=== PATIENT | male | born 1950 | race Hispanic/Latino ===

== ENCOUNTER 2019-07-18 08:03 | Emergency (ER) | payer MEDICARE ==
[~2019-07-18 08:03] MED LIST: ALLO100T PO; AMLO10TA7 PO; CINA30 PO; CIPR-245 PO; FURO40TA5 PO; MAG OXIDE PO; METO-408 PO; METR500T PO; MYCO250C36 PO; TACR1CAP10 PO; TACR1CAP18 PO
[2019-07-18 09:10] LABS: BASOPHILS % (AUTO) 0.4 % (0.0-5.0); EOSINOPHILS % (AUTO) 0.1 % (0.0-8.0); HEMATOCRIT 39.1 % (42-54); MEAN CORPUSCULAR HEMOGLOBIN 29.1 pg (27.0-33.0); MEAN CORPUSCULAR HGB CONC 33.2 g/dL (32.0-36.0); MEAN CORPUSCULAR VOLUME 87.7 fL (79-99); MONOCYTES % (AUTO) 10.4 % (3.0-13.0); NEUTROPHILS % (AUTO) 80.5 % (40.0-77.0); PLATELET COUNT (AUTO) 206 K/uL (130-400); RED BLOOD CELL COUNT(AUTO) 4.46 MIL/uL (4.50-6.20); WHITE BLOOD COUNT (AUTO) 10.3 K/uL (4.8-10.8)
[2019-07-18 09:25] LABS: CREATININE 2.1 mg/dL (0.5-1.5); POTASSIUM 3.5 mmol/L (3.5-5.1)
[2019-07-18 09:29] LABS: BILIRUBIN,TOTAL 2.3 mg/dL (0.2-1.0); TOTAL PROTEIN, SERUM 7.2 g/dL (6.0-8.3)
[2019-07-18 09:51] LABS: B-TYPE NATRIURETIC PEPTIDE 94 pg/mL (0-100)
[2019-07-18] MEDS ORDERED: DEXAMETHASONE SOD PHOSPHATE 4 MG/ML 1ML VIAL ONE (11:19)
== END 2019-07-18 12:14 | disposition home or self-care (01) ==
LOC: EDH 08:03
DX: M25.461 Effusion, right knee (principal); R60.0 Localized edema; N18.9 Chronic kidney disease, unspecified; R05 Cough; E78.5 Hyperlipidemia, unspecified; I25.10 Atherosclerotic heart disease of native coronary artery without angina pectoris; Z94.0 Kidney transplant status
CPT/HCPCS: 36415; 71046; 73562; 80053; 82550; 83880; 84484; 85025; 87804 ×2; 93005; 93970; 96372; 99285; J1100

== ENCOUNTER 2022-05-23 09:04 | Emergency (ER) | payer MEDICARE ==
[~2022-05-23] VITALS: Ht 177.8 cm; Wt 104.3 kg
[~2022-05-23 09:04] MED LIST changes: +AMLO-258 PO; -AMLO10TA7 PO; -CIPR-245 PO; +CIPR500T10 PO
[2022-05-23] MEDS ORDERED: LIDOCAINE HCL 1% 20 ML VIAL INJ STA (09:59)
[2022-05-23] MEDS ORDERED: KETOROLAC 30MG VIAL (30MG/ML) IM ONE (11:00)
[2022-05-23 11:58] VITALS: BP 165/94
[2022-05-23] MEDS ORDERED: ACET-66 PO (12:29)
== END 2022-05-23 12:38 | disposition home or self-care (01) ==
LOC: EDH 09:04
DX: M70.31 Other bursitis of elbow, right elbow (principal); I10 Essential (primary) hypertension; Z95.1 Presence of aortocoronary bypass graft; Z94.0 Kidney transplant status; Z98.890 Other specified postprocedural states; Z79.899 Other long term (current) drug therapy; Y93.89 Activity, other specified
CPT/HCPCS: 99284; 87071; 87205; 89060; 73080; 96372; 20605; J1885

== ENCOUNTER 2022-11-01 09:33 | Emergency (ER) | payer MEDICARE ==
[~2022-11-01] VITALS: Ht 180.3 cm; Wt 102.1 kg
[~2022-11-01 09:33] MED LIST changes: +ACET-66 PO
[2022-11-01 09:34] VITALS: BP 204/92
[2022-11-01 10:07] LABS: BASOPHILS % (AUTO) 0.5 % (0.0-5.0); EOSINOPHILS % (AUTO) 0.1 % (0.0-8.0); HEMATOCRIT 43.3 % (42-54); LYMPHOCYTES % (AUTO) 14.7 % (21.0-51.0); MEAN CORPUSCULAR HEMOGLOBIN 29.6 pg (27.0-33.0); MEAN CORPUSCULAR HGB CONC 32.6 g/dL (32.0-36.0); MONOCYTES % (AUTO) 7.8 % (3.0-13.0); NEUTROPHILS % (AUTO) 76.4 % (40.0-77.0); PLATELET COUNT (AUTO) 136 K/uL (130-400); RED BLOOD CELL COUNT(AUTO) 4.76 MIL/uL (4.50-6.20); RED CELL DISTRIBUTION WIDTH 12.5 % (11.0-15.5); WHITE BLOOD COUNT (AUTO) 8.6 K/uL (4.8-10.8)
[2022-11-01 10:17] LABS: CREATININE 1.2 mg/dL (0.5-1.5); POTASSIUM 4.4 mmol/L (3.5-5.1)
[2022-11-01 10:25] LABS: ALBUMIN 3.6 g/dL (3.5-5.0); TOTAL PROTEIN, SERUM 6.8 g/dL (6.0-8.3)
[2022-11-01 10:31] LABS: INR 0.99 (0.85-1.15); PROTHROMBIN TIME 10.8 SEC (9.6-11.6)
[2022-11-01] MEDS ORDERED: TRAMADOL HCL 50 MG TABLET PO ONE (14:30)
== END 2022-11-01 14:30 | disposition home or self-care (01) ==
LOC: EDH 09:33
DX: S66.911A Strain of unspecified muscle, fascia and tendon at wrist and hand level, right hand, initial encounter (principal); R22.31 Localized swelling, mass and lump, right upper limb; Z79.69 Long term (current) use of other immunomodulators and immunosuppressants; Z95.1 Presence of aortocoronary bypass graft; W18.39XA Other fall on same level, initial encounter; Y93.68 Activity, volleyball (beach) (court); Y92.89 Other specified places as the place of occurrence of the external cause; Y99.8 Other external cause status
CPT/HCPCS: 29125; 36415; 73110; 73130; 80053; 85025; 85610; 93971

== ENCOUNTER 2024-07-08 22:15 | Emergency (ER) | payer MEDICARE ==
[~2024-07-08] VITALS: Ht 177.8 cm; Wt 105.7 kg
--- NOTE | 2024-07-08 22:40 | ERN ---
General Chief Complaint: Mechanical Fall Stated Complaint: FALL, LEFT WRIST DEFORMITY, PAIN LEFT KNEE ANKLE Time Seen by MD: 22:22 History of Present Illness Initial Comments 74-year-old male brought in by EMS from home for a mechanical fall. Patient was mopping, he slipped on wet forearm fell on his left side. He did put out his hand to catch his fall. He was pain to the left wrist, left hip, left knee, and left ankle. There is some swelling to the left wrist, neurovascularly intact. No obvious other injuries to the leg. He does have full range of motion. He was ambulatory with the assistance on scene. Did not hit his head. No head or neck pain. He had no preceding symptoms. Allergies: Coded Allergies: No Known Drug Allergies (Unverified Allergy, Unknown, 02/02/15) Home Meds Active Scripts Acetaminophen (Tylenol) 500 Mg Tab, 500 MG PO Q6HPRN PRN for PAIN LEVEL 1 TO 5 for 5 Days, #30 TAB Prov:JACQUES CARR MD 05/23/22 Metronidazole (Flagyl) 500 Mg Tablet, 500 MG PO Q8H, #21 TAB Prov:FREDDY LOWRY MD 08/29/15 Ciprofloxacin HCl (Ciprofloxacin HCl) 500 Mg Tablet, 500 MG PO BID, #15 TAB Prov:FREDDY LOWRY MD 08/29/15 Reported Medications Cinacalcet HCl (Sensipar) 30 Mg Tablet, 30 MG PO DAILY, TAB 08/23/15 [Mag Oxide] No Conflict Check, 400 MG PO TID 02/02/15 Allopurinol (Allopurinol) 100 Mg Tablet, 100 MG PO AM, TAB 02/02/15 Tacrolimus (Tacrolimus) 1 Mg Capsule, 2 TAB PO PM, CAP 02/02/15 Tacrolimus (Prograf) 1 Mg/Cap Capsule, 3 TAB PO AM, CAP 02/02/15 Amlodipine Besylate (Amlodipine Besylate) 10 Mg Tablet, 10 MG PO AM, TAB 02/02/15 Furosemide (Furosemide) 40 Mg Tablet, 40 MG PO AM, TAB 02/02/15 Metoprolol Succinate (Metoprolol Succinate) 25 Mg Tab.er.24h, 25 MG PO AM, TAB 02/02/15 Mycophenolate Mofetil (Cellcept) 250 Mg Capsule, 750 MG PO BID, CAP 9/15/15 Past Medical History Past Medical History: Heart Disease, Other Medical History Other: GOUT Past Surgical History: CABG, Other Surgical History Other: KIDNEY TRANSPLANT, HERNIA Social History Social History: Negative, Lives with family ROS Dictation CONSTITUTIONAL: No chills, no fever, no weakness, no diaphoresis, no malaise. HEAD/FACE: No signs of trauma. EENT: No eye pain, no blurred vision, no tearing, no double vision, no ear pain, no ear discharge, no nose pain, no nasal congestion, no throat pain, no throat swelling, no mouth pain. RESPIRATORY: No cough, no orthopnea, no SOB, no stridor, no wheezing. CARDIOVASCULAR: No chest pain, no edema, no palpitations, no syncope. GASTROINTESTINAL/ABDOMINAL: No abdominal pain, no constipation, no diarrhea, no nausea, no vomiting. GENITOURINARY: No abnormal discharge, no dysuria, no frequent urination, no hematuria. No complaints of pain in the genitals. MUSCULOSKELETAL: Left ankle, knee, hip pain. Left wrist pain INTEGUMENTARY: No change in color, no change in hair/nails, no dryness, no lesion, no lumps, no rash. NEUROLOGICAL/PSYCH: No anxiety, not depressed, no emotional problem, no headache, no numbness, no pre-existing deficit, no history of seizures, no tremors, no weakness. HEMATOLOGIC/LYMPHATIC: Not anemic, no history of blood clots, no apparent bleeding, no bruising, glands not swollen. All Systems Negative, Except as Noted. Physical Exam Physical Exam Dictation VITAL SIGNS: Reviewed. GENERAL APPEARANCE: Alert, oriented x3, no acute distress HEAD AND FACE: Non-traumatic. EYES: PERRL, pink conjunctivas, eyelid no trauma, anterior chamber clear. EARS: Pinnas intact and no signs of trauma or erythema. Ear canals clear and no discharge. TMs no erythema. NOSE: No discharge, no bleeding. OROPHARYNX: Mouth normal, teeth no caries, tongue pink. Pharynx clear, no erythema. Tonsils no exudates, no abscesses noted. Mucous membrane moist. NECK: Supple, non-tender, no thyromegaly, no masses, no JVD, no bruits. BREAST: Deferred. CHEST: No tenderness, no crepitus, no paradoxical movement, no retractions. LUNGS: Clear, well-ventilated, symmetric, no rales, no wheezing, no rhonchi, no stridor, good breath sounds bilaterally. HEART: Regular rate, regular rhythm, no murmur, no gallops. VASCULAR: No peripheral edema. ABDOMEN: Soft, positive bowel sounds, nondistended, no guarding, nontender, no rebound, no masses no hepatomegaly, no splenomegaly, no Wills's sign, no hernias. RECTAL: Deferred. GENITAL: Deferred. NEUROLOGICAL: Normal speech, gross motor function intact, gross sensory function intact. MUSCULOSKELETAL: Neck nontender, full range of motion, back nontender, full range of motion. Left wrist swelling, full range of motion EXTREMITIES: Nontender, full range of motion. SKIN: Color pink, dry, no turgor, no rash, no lacerations, no abrasions, no contusions. LYMPHATICS: Deferred. MDM CC: Left wrist pain, hip pain, knee pain secondary to a fall Historian: Patient Comorbidities: Heart disease, gout, kidney transplant, CABG Limitations by social determinants of health: None Differential diagnosis: Soft tissue injury versus fracture No signs of head injury, did not hit his head or his neck, he has no pain or tenderness to those areas. I independently interpreted the hip x-ray, left knee x-ray, left ankle x-ray. All are normal per my independent interpretation. No bony abnormalities or acute fractures. The left wrist fracture per my independent interpretation does show a distal radius fracture. There is some mild displacement. The patient was right handed, and he has a left wrist injury. The displacement is not major, so I think at this point in time the patient was safe to be wrapped up with a splint and sent to Orthopedic as an outpatient. There is no indication for immediate reduction. He was neurovascularly intact. Patient's wrist was splinted with a sugar-tong splint by the technical sales consultant. He was neurovascularly it intact both before and after. Patient received IV morphine and IV Dilaudid and IV Toradol for pain control here in the ER. We will discharge with a prescription for [place] tabs. We will not give an NSAID due to the kidney transplant. We will give a referral to orthopedist. Patient agrees with this plan. ED Course Orders Procedure Category Date Status Time Wrist Comp 3+Vws Lt RAD 07/08/24 Taken 22:28 Pelvis 1-2vws RAD 07/08/24 Taken 22:28 Knee 3vws Lt RAD 07/08/24 Taken 22:28 Ankle Comp 3vws Lt RAD 07/08/24 Taken 22:28 Ketorolac PHA 07/08/24 Complete Tromethamine 15mg/Ml 22:30 Morphine 4mg Syg PHA 07/08/24 Complete (Morphine 4mg Syg) 22:30 *Nursing CPOE 07/08/24 Transmitted Communication: 23:06 Hydromorphone 0.5mg PHA 07/08/24 Complete Syg (Dilaudid 0.5mg 23:30 Current Medications Medications (Trade) Dose Ordered Sig/Anuja Route PRN Reason Start Time Stop Time Status Last Admin Dose Admin Hydromorphone HCl (DiLAUDid 0.5MG INJ) 0.5 mg ONCE ONCE IVP 07/08/24 23:30 07/08/24 23:31 DC Ketorolac Tromethamine (toRADol) 15 mg ONCE ONCE IV 07/08/24 22:30 07/08/24 22:33 DC 07/08/24 22:42 Morphine Sulfate (morPHINE 4MG SYG) 4 mg ONCE ONCE IVP 07/08/24 22:30 07/08/24 22:32 DC 07/08/24 22:42 Vital Signs Date Time Temp Pulse Resp B/P (MAP) Pulse Ox O2 Delivery O2 Flow Rate FiO2 07/08/24 22:43 98.2 63 16 136/85 96 Room Air* 0 21 07/08/24 22:17 98.1 110 20 142/90 94 Room Air 0 DX & DISP Disposition: Discharge Departure Impression: Primary Impression: Left wrist fracture Condition: Stable Scripts Hydrocodone/Acetaminophen (Hydrocodon-Acetaminophen 5-325) 5 Mg-325 Mg Tablet 1-2 TAB PO Q6HPRN PRN for pain for 7 Days, #30 TAB 0 Refills Prov: GABINO GOOD DO 07/08/24 Additional Instructions: You have a left wrist fracture. The fracture was placed in a splint here in the ER. Your other x-rays (hip, knee, ankle) do not show any fractures. For pain, I have prescribed [place] tabs. Take 1-2 tabs every 6 hours as needed for pain. Wear the splint that you have been provided. Use the sling frequently. You will need to follow up with an orthopedist. I have given you a referral to Dr. Arboleda or Dr. Hernandez. Call for an appointment. Please return to the emergency department if you have any concerns. Referrals: TESFAYE LANDERS MD (PCP) AINSLEY HERNANDEZ MD, VISHWAS B MD WORTH, RYAN E DO Jul 08, 2024 22:40
[2024-07-08] MEDS: morPHINE 4 MG SYG IVP ONE (22:42)
[2024-07-08] MEDS: ketOROlac 15MG/ML VIAL (15MG/ML) IV ONE (22:42)
--- NOTE | 2024-07-08 23:23 | NUR ---
SUGAR TONG SPLINT APPLIED TO LEFT WRIST ORDERED
[2024-07-08] MEDS ORDERED: HYDR-4060 PO (23:37)
[2024-07-08] MEDS: hydroMORPHone 0.5 MG SYG (0.5MG/0.5ML) IVP ONE (23:39)
[2024-07-09 00:26] VITALS: BP 136/72; PULSE 60; RESP 16; TEMP 98.3; O2SAT 96
--- NOTE | 2024-07-09 08:38 | HMCIMG ---
ANKLE COMP 3VWS LT REASON: injury TECHNIQUE: 3 views were obtained. FINDINGS: There is no evidence of fracture or dislocation. There is no joint effusion. The soft tissues appear unremarkable. There is no evidence of a radiopaque foreign body. There is a heel spur. There is vascular calcification. IMPRESSION: No acute findings.
--- NOTE | 2024-07-09 08:38 | HMCIMG ---
KNEE 3VWS LT REASON: injury TECHNIQUE: 3 views were obtained. FINDINGS: There is no evidence of fracture or dislocation. There is no joint effusion. The soft tissues appear unremarkable. There is no evidence of a radiopaque foreign body. There is moderate medial joint space osteoarthritis. Lateral and patellofemoral joint spaces appear preserved. IMPRESSION: 1. Moderate medial joint space osteoarthritis. 2. No acute finding.
--- NOTE | 2024-07-09 08:38 | HMCIMG ---
PELVIS 1-2VWS REASON: injury TECHNIQUE: Single AP view was obtained. FINDINGS: Bones appear normal. There are no visible fractures. Joint spaces are unremarkable. Soft tissues appear normal as well. Surgical changes are noted in the lower lumbar spine. IMPRESSION: 1. No acute finding.
--- NOTE | 2024-07-09 08:39 | HMCIMG ---
WRIST COMP 3+VWS LT REASON: injury TECHNIQUE: 3 views were obtained. FINDINGS: There is a comminuted fracture of the proximal left radius. The fracture appears impacted with some lateral and anterior displacement. There is a displaced ulnar styloid fracture as well. Bones appear intact.. IMPRESSION: 1. Comminuted impacted and laterally and anteriorly displaced fracture distal radius. 2. Ulnar styloid evulsion.
== END 2024-07-09 00:27 | disposition home or self-care (01) ==
LOC: EDH 22:15
DX: S52.102A Unspecified fracture of upper end of left radius, initial encounter for closed fracture (principal); S52.612A Displaced fracture of left ulna styloid process, initial encounter for closed fracture; Z79.624 Long term (current) use of inhibitors of nucleotide synthesis; Z94.0 Kidney transplant status; Z95.1 Presence of aortocoronary bypass graft; W01.0XXA Fall on same level from slipping, tripping and stumbling without subsequent striking against object, initial encounter; Y93.89 Activity, other specified; Y92.89 Other specified places as the place of occurrence of the external cause; Y99.8 Other external cause status
CPT/HCPCS: 99284; 96374; 96375; 73610; 73562; 72170; 73110; 29125; J1885; J1171; J2270